=== PATIENT | female | born 1990 | race Caucasian/White ===

== ENCOUNTER → 2017-01-20 | Outpatient (CLI) | payer OTHER | LOC: BHSO 10:34 | DX: F41.1 Generalized anxiety disorder (principal) ==

== ENCOUNTER → 2017-06-15 | Outpatient (CLI) | payer OTHER, MEDICAID | LOC: BHSO 10:28 | DX: F41.1 Generalized anxiety disorder (principal) ==

== ENCOUNTER → 2017-10-24 | Outpatient (CLI) | payer MEDICAID | LOC: BHSO 15:17 | DX: F41.0 Panic disorder [episodic paroxysmal anxiety] (principal) ==

== ENCOUNTER → 2018-03-14 | Outpatient (CLI) | payer BC | LOC: BHSO 09:34 | DX: F90.0 Attention-deficit hyperactivity disorder, predominantly inattentive type (principal) | CPT/HCPCS: G0463 ==

== ENCOUNTER → 2018-06-13 | Outpatient (CLI) | payer BC | LOC: BHSO 13:47 | DX: F90.0 Attention-deficit hyperactivity disorder, predominantly inattentive type (principal) ==